=== PATIENT | female | born 1975 | race Caucasian/White ===

== ENCOUNTER → 2016-11-03 | Outpatient (CLI) | payer BC ==
[~2016-11-03] MED LIST: AMOX1TAB43 PO; AZITTAB PO; FMR25 PO
[2016-11-03 16:36] LABS: URINE APPEARANCE CLEAR (CLEAR); URINE BILIRUBIN NEG (NEG); URINE COLOR YELLOW; URINE NITRITE NEG (NEG); URINE PH 5.5 (4.5-7.5); URINE SPECIFIC GRAVITY 1.002 (1.000-1.030); UROBILINOGEN NEG (NEG)
[2016-11-03 16:43] LABS: MANUAL MICROSCOPIC REQUIRED? NO; REVIEW REQ? NO
== END | disposition home or self-care (01) ==
LOC: C.LABSPEC 14:54
PROVIDERS: ATTEND Obstetrics & Gynecology
DX: R39.9 Unspecified symptoms and signs involving the genitourinary system (principal)

== ENCOUNTER → 2016-11-03 | Outpatient (CLI) | payer BC | END | disposition home or self-care (01) | LOC: C.PAPS 09:49 | PROVIDERS: ATTEND Obstetrics & Gynecology | DX: Z01.419 Encounter for gynecological examination (general) (routine) without abnormal findings (principal) ==

== ENCOUNTER → 2017-09-08 | Outpatient (CLI) | payer BC ==
[~2017-09-08] MED LIST changes: -AZITTAB PO
--- NOTE | 2017-09-09 13:55 | MAMMOGRAPHY REPORT ---
UNILATERAL RIGHT DIGITAL SCREENING MAMMOGRAM TOMOSYNTHESIS WITH CAD: 09/08/2017 CLINICAL HISTORY: Asymptomatic. Personal history of breast cancer. TECHNIQUE: Breast tomosynthesis in addition to standard 2D mammography was performed. Current study was also evaluated with a Computer Aided Detection (CAD) system. Bilateral CC and MLO 2-D and tomosy nthesis images including implant displaced views were performed. Tomosynthesis images were obtained of the implant displaced views only. COMPARISON: Comparison is made to exams dated: 08/24/2016 mammogram, 08/20/2015 breast MRI, 08/20/20 mammogram - [facility], 11/20/2012 mammogram, 11/08/2011 mammogram, and 10/29/2009 ultrasound - [facility]. BREAST COMPOSITION: There are scattered areas of fibroglandular density in the right breast. FINDINGS: There are no suspicious masses, calcifications, or areas of architectural distortion noted in the right breast. There has been no significant interval change compared to prior exams. A subpe ctoral silicone implant is again noted. Status post left mastectomy. IMPRESSION: ACR BI-RADS CATEGORY 2: BENIGN There is no mammographic evidence of malignancy in the right breast. A 1 year screening mammogram is recommended. The patient will receive written notification of the results. Approximately 10% of breast cancers are not detected with mammography. A negative mammographic report should not delay biopsy if a clinically suggestive mass is present. Leeann Venegas M.D. ah/:09/08/2017 15:00:42 Erector Operator: Ximena LOPEZ(Tevin)(M), [facility] letter sent: Normal 1/2 BI-RADS Code: ACR BI-RADS Category 2: Benign
== END | disposition home or self-care (01) ==
LOC: C.MAMM 14:10
PROVIDERS: ATTEND Obstetrics & Gynecology
DX: Z12.31 Encounter for screening mammogram for malignant neoplasm of breast (principal); Z98.82 Breast implant status; Z85.3 Personal history of malignant neoplasm of breast

== ENCOUNTER 2025-06-28 09:11 | Observation (INO) ==
--- NOTE | 2025-06-11 15:31 | PAT Medication Instructions ---
Medication Instructions Date of Service June 11, 2025 Home Medications levocetirizine 5 mg tablet 5 mg PO QAM PRN allergy symptoms DO NOT take the morning of surgery levocetirizine 5 mg tablet 5 mg PO QAM PRN allergy symptoms MORNING OF SURGERY: NOTHING TO EAT OR DRINK AFTER MIDNIGHT Other Notes If you have any questions please call us at [phone] or [phone] or [phone] or [phone]
--- NOTE | 2025-06-17 09:11 | Anesthesiology Consultation ---
Date of Service June 17, 2025 Assessment & Plan (1) Encounter for pre-operative examination: Chart Review Chart Review: Acceptable Risk for Surgery (pending upcoming A/P CTA ) and Patient seen in Pre Admission Testing - Awaiting abdomen/pelvis CTA 06/24/25 ([place]) Left limb restriction N/V with opioids Pt currently scheduled as 23 hours observation. If surgeon decides to change patient to Same Day Joint, patient would be acceptable risk for LEANNA, pending patient is motivated, has good support and surgeon's office completes Same Day Joint Program preop requirements. Per PAT appt on 06/17/25, no recent illness/disease exposures, illness related symptoms, or recent illness/disease positive tests. Will leave to surgeon's discretion if preop Covid testing needed Vascular Medicine office visit 11/13/24= "new consult ascending small splenic artery aneurysm... incidental splenic artery aneurysm is very small. Reassured patient that do not expect this to ever cause her problems. Her aneurysm is nowhere near size where preemptive surgery considered... From a vascular standpoint no restrictions at this time. Plan on repeat CTA at 1 year marcos, 06/2025. If splenic artery aneurysmal unchanged can undergo periodic surveillance imaging (3 to 5 years)." Teaching & Discussion Pre-Anesthesia Teaching/Discussion Notes: Instructed NPO after midnight before surgery,except medications with 15 cc of water. Medication instructions p rovided according to the PAT guidelines. History Surgery Operation Date: 06/28/25 12:00 Proposed Procedures p Right Anterior Total Hip Arthroplasty - Stefan Pedersen, Height/Weight Height: 5 ft 6 in Weight: 93.1 kg Allergies Allergy/AdvReac Type Severity Reaction Status Date / Time codeine Allergy Unknown itching, Verified 06/06/25 12:32 irritable, n/v DERM-A-CISNEROS Allergy Severe rash Uncoded 06/06/25 12:32 Medications Home Medications Medication Instructions Recorded Confirmed Last Taken levocetirizine 5 mg tablet 5 mg PO QAM PRN allergy symptoms 06/06/25 06/06/25 Unknown Past Medical History Medical History Arthritis History of breast cancer dx 2009; s/p L mastectomy, chemo, XRT Left limb restriction History of postoperative nausea and vomiting pt states 'in general sensitive to opioids' Lymphedema to left arm (did have lymph nodes transferred from left groin to left arm) Splenic artery aneurysm found incidentally on imaging; [place] [facility] [place]: plan to f/u with repeat imaging 06/24/2025 Surgical menopause Exercise / Class Metabolic Activity II 4-5 Yardwork/Stairs/Walk up hill (one flight of stairs - no chest pain or SOB ) Past Family History Family History Mother Alzheimer disease Father Alzheimer disease Dyslipidemia Aunt Breast cancer maternal Diabetes maternal Grandmother (Maternal) Cervix cancer Other Dementia Heart disease Ovarian cancer Past Surgical History Surgical History H/O abdominal surgery Left groin lymphadenectomy (for EDYTA flap surgery) H/O left mastectomy 2009 H/O right mastectomy 2023 (done prophylactially) History of breast reconstruction (~2009) 2023--EDYTA flaps, removed implant/reconstruction still has numbness around the scar area in the right lower/mid lower abdomen area Hx of BSO (bilateral salpingo-oophorectomy) S/P breast biopsy, right S/P tooth extraction Past Anesthesia History No Hx of Anesthesia Complications (with exception PONV ) and No Family Hx of Anesthesia Complications (with exception to mother- PONV (feels more due to morphine)) History of PONV No Hx of Motion Sickness and History of PONV (feels N/V with opioids ) Social History Smoking Status: Never smoker Do You Dip or Chew Tobacco: No Hx Alcohol Use: Yes Alcohol type: beer and wine alcohol intake frequency: a few times a month Hx Substance Use: No Review of Systems Patient denies chest pain, shortness of breath, dyspnea on exertion, reflux, cough, wheezing, palpitations. No hx of seizures, stroke, WI, apnea/snoring. No hx of blood clots or blood transfusions Physical Exam Vital Signs VITALS BP 134/87 P 73 TEMP 97.4 SP02 96% RESP 16 Constitutional no acute distress ENMT Mouth: no TMJ clicking Thyromental Distance: > or= 3.5 Finger Breadths (3.5) Mallampati Class: I Neck neck extension not limited Respiratory normal respiratory effort; no respiratory distress Auscultation: lungs clear to auscultation bilaterally; no wheezes Cardiovascular Rate/Rhythm: regular rate and regular rhythm Heart Sounds: no murmur Vessels: no carotid bruit Musculoskeletal Spine: no pain with cervical ROM Extremities: extremities normal to inspection Psychiatric Orientation: alert Lab Results Anesthesia Preop Results Results Anesthesia Widget: WBC 4.33 K/ul (4.8-10.8) L 06/17/25 Hgb 13.7 g/dl (12.0-16.0) 06/17/25 Hct 39.7 % (37.0-47.0) 06/17/25 Plt 220 K/uL (130-400) 06/17/25 Na 139 mmol/L (136-145) 06/17/25 K 3.8 mmol/L (3.5-5.1) 06/17/25 Cl 106 mmol/L (98-107) 06/17/25 CO2 27 mmol/L (21-32) 06/17/25 BUN 15 mg/dl (6-23) 06/17/25 Creat 0.63 mg/dl (0.6-1.2) 06/17/25 Glucose Level 96 mg/dl (70-99(Fasting)) 06/17/25 PT 10.2 Seconds (9.0-12.0) 06/17/25 PTT 30 Seconds (21-31) 06/17/25 INR 0.9 (0.9-1.1) 06/17/25 Blood Type O Positive 06/17/25 Antibody Screen NEGATIVE 06/17/25 Testing Electrocardiogram Date: 06/17/25 Findings: + NSR @ (68bpm) Low voltage QRS Chest X-Ray Date: 06/17/25 Findings: + NAD Other Testing Abdomen/Pelvis/Chest 06/29/24= Partial left breast mastectomy with bilateral breast implants. Left axillary lymphadenectomy. No evidence of recurrence or metastatic disease in the chest, abdomen, pelvis. Incidental findings include a 7mm saccular splenic artery aneurysm and a 3 mm gallbladder polyp. Colonic diverticulosis.
--- NOTE | 2025-06-24 13:01 | History & Physical Report ---
Date of Service June 24, 2025 Assessment & Plan (1) Osteoarthritis of right hip: We will proceed with a right anterior total of arthroplasty. Postoperatively, she will be started on aspirin for DVT prophylaxis and kept overnight in the hospital for postop medical management. She plans to go to outpatient physical therapy at [facility] after discharge. History of Present Illness Chief Complaint: Osteoarthritis of the right hip. Primary Care Provider: Joleen Thompson MD Alison is a pleasant 49-year-old female who has been dealing with chronic increasing osteoarthritis of her right hip. She has been seeing one of the partners in my office. She has had conservative treatment, but unfortunately, it is no longer helping. After failing years of conservative treatment, she has elected proceed with a right anterior total of arthroplasty. Allergies Allergy/AdvReac Type Severity Reaction Status Date / Time codeine Allergy Unknown itching, Verified 06/06/25 12:32 irritable, n/v DERM-A-CISNEROS Allergy Severe rash Uncoded 06/06/25 12:32 Home Medications Medication Instructions Recorded Confirmed Type levocetirizine 5 mg tablet 5 mg PO QAM PRN allergy symptoms 06/06/25 06/06/25 History Past Med/Surg History Problem List (Updated 06/24/25 @ 13:00 by Stefan Pedersen DO) Osteoarthritis of right hip Encounter for pre-operative examination Visit for review of DEXA scan Urinary symptom or sign Bilateral shoulder pain Right hip pain Right leg pain Surgical menopause Blood vessel injury Arthritis Herpes simplex (Acute) Breast cancer (Chronic) hx of chest wall recurrence, genetic screening negative. Medical History Lymphedema to left arm (did have lymph nodes transferred from left groin to left arm) Surgical menopause Arthritis History of postoperative nausea and vomiting pt states 'in general sensitive to opioids' History of breast cancer dx 2009; s/p L mastectomy, chemo, XRT Left limb restriction Splenic artery aneurysm found incidentally on imaging; [place] [facility] [place]: plan to f/u with repeat imaging 06/24/2025 Surgical History H/O right mastectomy 2023 (done prophylactially) S/P tooth extraction H/O abdominal surgery Left groin lymphadenectomy (for EDYTA flap surgery) Hx of BSO (bilateral salpingo-oophorectomy) S/P breast biopsy, right History of breast reconstruction (~2009) 2023--EDYTA flaps, removed implant/reconstruction still has numbness around the scar area in the right lower/mid lower abdomen area H/O left mastectomy 2009 Family History Mother Alzheimer disease Father Alzheimer disease Dyslipidemia Aunt Breast cancer maternal Diabetes maternal Grandmother (Maternal) Cervix cancer Other Dementia Heart disease Ovarian cancer Social History Smoking Status: Never smoker Tobacco Type: Cigarettes Age Started Using Tobacco: 18; Age Quit Using Tobacco: 22; packs per day: 0.25; Second Hand Exposure: No; Do You Dip or Chew Tobacco: No; Hx Alcohol Use: Yes Alcohol type: beer and wine Alcohol Intake Frequency: 2-3 x/Week Hx Substance Use: No Preferred Language: Mozambican Communication Ability: Effective Visual Impairment: Limited Hearing Ability: Normal 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 Physical Exam On physical exam of the right hip, she has decreased range of motion. She has pain with internal/external rotation. All of her pain is located in the groin.. Constitutional WD/WN, vitals as above Eyes PERRL, conjunctivae normal, anicteric sclerae ENMT external ear and nose normal, oropharynx normal Neck trachea midline, no thyromegaly Respiratory normal respiratory effort Cardiovascular RRR, no murmur, no edema Gastrointestinal (Abdomen) normal bowel sounds, soft, nontender, no hepatosplenomegaly Psychiatric A+Ox3, euthymic affect Results & Data Results & Data Laboratory Results . Diagnostic Findings X-rays of the right hip show advanced osteoarthritis with joint space narrowing, osteophyte summation, and [id number] articulation. PG Care Time/CCT Total # of Minutes Spent Total Time Spent with Patient: Total time spent is greater than 50% in coordination of care (as documented) at patient's floor/unit and/or counseling patient: Coding Level of Care Code None Diagnoses Osteoarthritis of right hip M16.11
[~2025-06-28 09:11] MED LIST changes: -AMOX1TAB43 PO; +BUPIVACAINE 0.5 % 5 MG/1 ML PF 10ML VIAL ONE; -FMR25 PO
[2025-06-28] MEDS: FAMOTIDINE 20 MG TAB PO SCH (09:39)
[2025-06-28] MEDS: ACETAMINOPHEN 500 MG TAB PO SCH ×2 (09:39→15:42)
[2025-06-28] MEDS: dexAMETHasone**PF** 10 MG/ML VIAL IV SCH (09:39)
[2025-06-28] MEDS: GABAPENTIN 600 MG DOSE PO SCH (09:39)
[2025-06-28] MEDS: TRANEXAMIC ACID 1,000 MG **IV Pre-op IV SCH (09:40)
[2025-06-28] MEDS: LR 500ML BOLUS, THEN 15ML/HR IV SCH (09:42)
--- NOTE | 2025-06-28 09:52 | History & Physical Bridge Note ---
Date of Service June 28, 2025 History & Physical Bridge Note I have examined the patient, reviewed the History & Physical and in the interval since the performance of the History & Physical I have noted the following changes of clinical significance: no changes noted
[2025-06-28] MEDS ORDERED: ATROPINE SULFATE 0.1 MG/ML 10ML SYR IV PRN (10:13)
[2025-06-28] MEDS ORDERED: ONDANSETRON INJ 2 MG/ML 2 ML VIAL IV PRN ×2 (10:13→14:23)
[2025-06-28] MEDS ORDERED: MIDAZOLAM HCL 1 MG/ML 2ML VIAL ONE ×2 (10:20→11:44)
[2025-06-28] MEDS ORDERED: LIDOCAINE 2% 2 ML VIAL/AMP(20MG/ML) INFIL ONE (10:20)
[2025-06-28] MEDS ORDERED: PROPOFOL IV EMULSION 10 MG/ML 20 ML VIAL IV ONE (10:20)
[2025-06-28] MEDS: LR 60ML/HR IV SCH (11:17)
[2025-06-28] MEDS: ORTHO JOINT ANESTHETIC ONE (11:36)
[2025-06-28] MEDS ORDERED: ePHEDrine sulfate 50 MG/5 ML SYR ONE (11:39)
[2025-06-28] MEDS: ROPIV 0.5% 246mg, Ketorolac 30mg, EPINEPHrine 0.5mg in NSS INFIL SCH (11:46)
--- NOTE | 2025-06-28 12:08 | Operative Report ---
PG Post Operative Report Pre & Post Diagnosis Operation Date: 06/28/25 11:00 Pre-Op Diagnosis: Right Hip Arthritis Post-Op Diagnosis: Right Hip Arthritis I identified the patient and participated in the time-out.: Yes Procedure Operation Date: 06/28/25 11:00 Actual Procedures p Right Anterior Total Hip Arthroplasty(Right) - Stefan Pedersen DO Surgeon Stefan Pedersen DO Sausage Meat Trimmer Frandy Irizarry PA-C Estimated Blood Loss 250 Findings Consistent with Post-Op Diagnosis Specimens Right humeral head Description of Procedure Implants used I used a ZimmerBiomet total hip arthroplasty system with a size 2 high offset Z1 stem, a 48 mm G7 cup with a 25mm screw, an E1 polyethylene liner, a 32 mm ceramic head with a 0 neck. Alison arrived at the hospital for the above procedure. She was seen in the preoperative holding area and the operative extremity was identified and signed. She was given a spinal anesthetic, a preoperative antibiotic, and TXA. She was then taken back to the operating room and laid on the table in the supine position. She was given basic sedation. The operative leg was secured to a Puristst leg positioner. The hip was then prepped and draped in sterile fashion. A timeout was done and the patient and the operative extremity was properly identified. An anterior approach was used. Dissection was taken down through the fascia and the tensor muscle belly was retracted laterally and the rectus was retracted medially. The circumflex vessels were identified and ligated. The capsule was then incised and tagged for later repair. The femoral neck was then cut and the femoral head was removed. The acetabulum was exposed. Time was spent doing a complete circumferential labral release. Sequential reaming of the acetabulum up to a size 47 reamer was done. Final reamings were done under fluoroscopy to ensure appropriate version. A Biomet 48 mm G7 cup was then impacted into place. A single 25 mm screw was placed. The E1 polyethylene liner was then snapped into place. Surrounding soft tissues were then injected with 100 cc of an orthopedic pain control cocktail. The proximal femur was then exposed. Sequential broaching up to a size 2 broach was done. Off that broach a size 32 head with a 0 neck was trialed. The hip was reduced and fluoroscopic images showed anatomic alignment of the implants in acceptable length. The broach was removed. The final size 2 high offset Z1 stem was then impacted into place. A ceramic 32 mm head with a 0 neck was then impacted onto the stem and the hip was reduced. Final fluoroscopic images showed anatomic alignment of the hip. The capsule was then closed with #1 Vicryl suture. A dilute betadyne lavage was then done for 3 minutes. The joint was then irrigated with normal saline solution. The fascia was closed with #1 PDS suture. Skin was closed with 2-0 Vicryl, Roosevelt Zipline, and a Silverlon dressing. She was then transferred to a hospital bed and taken to the post anesthesia care unit in stable condition. She tolerated the procedure well. Frandy Irizarry PA-C, was present for the entire procedure. He was critical for patient positioning, prepping, draping, retraction exposure, wound closure and application of sterile dressing. I attest to the content of the Intraoperative Record and any orders documented therein. Any exceptions are noted below.
--- NOTE | 2025-06-28 12:49 | Fluoroscopy Report ---
FL hip RT 1V CLINICAL HISTORY: ANTERIOR HIP ARTHROPLASTY COMPARISON STUDY: 03/26/2025 FLUOROSCOPY TIME: 9 seconds FLUOROSCOPY IMAGES: 1 EXPOSURE DOSE: 1.2 mGy FINDINGS: Fluoroscopy was provided for right hip prosthesis. IMPRESSION: Intraoperative fluoroscopy. ACT 112: Negative or not required by law. Electronically signed by: Jairo Dickson M.D. 06/28/2025 12:47 PM
--- NOTE | 2025-06-28 13:35 | XRay Report ---
XR hip 1V RT w pelvis CLINICAL HISTORY: IN PACU - Post Surgical COMPARISON: 03/26/2025 FINDINGS: Right hip prosthesis shows no hardware complication. There is expected soft tissue gas. IMPRESSION: Unremarkable postoperative exam. ACT 112: Negative or not required by law. Electronically signed by: Jairo Dickson M.D. 06/28/2025 1:33 PM
[2025-06-28] MEDS ORDERED: MAGNESIUM HYDROXIDE SUSP 30 ML UDC PO PRN (14:23)
[2025-06-28] MEDS ORDERED: NALOXONE HCL 0.4 MG/1 ML VIAL/CARP IV PRN (14:23)
[2025-06-28] MEDS ORDERED: HYDROmorphone INJ 0.5 MG/0.5 ML SYR IV PRN (14:23)
[2025-06-28] MEDS ORDERED: METOCLOPRAMIDE HCL INJ 5 MG/ML 2 ML VIAL IV PRN (14:23)
--- NOTE | 2025-06-28 14:36 | Anesthesiology Progress Note ---
Date of Service June 28, 2025 Anesthesia Post Procedure Vital Signs Vital Signs: Temp Pulse Resp BP Pulse Ox O2 Del Method O2 Flow Rate 06/28/25 14:05 36.5 C 69 16 121/81 94 Room Air 06/28/25 13:40 59 L 17 117/71 98 Room Air 06/28/25 13:25 36.4 C L 60 18 119/76 95 Room Air 06/28/25 13:10 67 18 118/79 95 Room Air 06/28/25 13:00 63 17 114/79 95 Room Air 06/28/25 12:50 65 17 110/77 95 Room Air 06/28/25 12:40 75 18 113/83 96 Room Air 06/28/25 12:34 36.6 C 71 18 122/91 100 Oxymask 10 06/28/25 09:10 36.6 C 65 22 161/96 H 98 Room Air Pain Intensity Right Hip: Pain Intensity: 6 Notes Mental Status: alert / awake / arousable Patient Amnestic to Procedure: Yes Nausea / Vomiting: adequately controlled Pain: adequately controlled Airway Patency, RR, SpO2: stable & adequate BP & HR: stable & adequate Hydration State: stable & adequate Neuraxial Anesthesia: was administered and sensory block is resolving Anesthetic Complications: no major complications apparent
[2025-06-28] MEDS: SODIUM CHLORIDE 0.9% 1,000 ML IV SCH (15:47)
[2025-06-28] MEDS: KETOROLAC TROMETHAMINE 15 MG/ML VIAL IV SCH (16:54)
[2025-06-28] MEDS: DOCUSATE SODIUM 100 MG CAP PO SCH (21:00)
[2025-06-28] MEDS: SENNA 8.6 MG TAB PO SCH (21:00)
[2025-06-28] MEDS: ASPIRIN 81 MG ECTAB PO SCH (21:00)
--- NOTE | 2025-06-29 06:10 | Orthopedic Progress Note ---
Date of Service June 29, 2025 Assessment & Plan (1) Status post right hip replacement: Overall she is doing very well. She is not having much pain in the right hip. She will be seen by physical therapy today for ambulation and range of motion exercises. She is on aspirin for DVT prophylaxis. She can be discharged home later today. She will follow-up with orthopedics in 2 weeks. Dashawn Rosas was seen and examined at bedside this morning. Overall she is doing fairly well. She is not having much pain in the right hip. She has been up and ambulating to the bathroom. She has no complaints.. Review of Systems All systems reviewed & are unremarkable except as noted in HPI & below. Physical Exam On physical exam of the right hip, the dressing is clean and dry. Her leg is out full extension. She has active dorsiflexion and plantarflexion of her right ankle.. Results & Data Results & Data Laboratory Results . Diagnostic Findings Postoperative x-rays of the right hip show the prosthesis to be in anatomic alignment without any evidence of fracture, dislocation, or loosening.. PG Care Time/CCT Total # of Minutes Spent Total Time Spent with Patient: Total time spent is greater than 50% in coordination of care (as documented) at patient's floor/unit and/or counseling patient: Coding Level of Care Code 32567 Post Operative Follow-Up Diagnoses Status post right hip replacement Z96.641
[2025-06-29 07:08] VITALS: BP 122/84; PULSE 80; RESP 18; TEMP 97.7; O2SAT 96
[2025-06-29] MEDS: MULTIVITAMIN TAB PO SCH (07:21)
== END 2025-06-29 11:07 | disposition home or self-care (01) ==
LOC: 3E 09:11 → ASU 09:11